=== PATIENT | female | born 1965 | race African-American/Black ===

== ENCOUNTER 2022-05-03 07:59 | Day surgery (SDC) | payer OTHER, SELFPAY ==
[2022-04-26 09:42] VITALS: BMI 46.6
--- NOTE | 2022-05-02 09:46 | HO.ANESPROP2 ---
Documented by User: Brigitte Quintana NP 05/02/22 09:48 HPI - Anesthesia Eval Consult details Narrative: 56yo F for Left AV Fistula Creation Late stage CKD, no HD yet [facility] Past Medical History Medical History Anemia Chronic kidney disease Difficulty swallowing Elevated cholesterol HTN (hypertension) Lupus (systemic lupus erythematosus) Pneumonia Sleep apnea Type 2 diabetes mellitus Surgical History Surgical History H/O colonoscopy Hx of cholecystectomy Hx of knee surgery Social History Social History Are you a primary critical care physician assistant to a significant other at home: No Do you presently have visiting nurse or other home services: No Patient Tobacco Use Status: Former Tobacco user Quit Date: 2006 Tobacco use type: Cigarette Use of substances other than those prescribed or required for medical reasons: No Have you been hit, kicked, punched, or otherwise hurt by someone within the past year? If so, by whom?: No Are you DNR?: No Advance Directives: No ([facility] has to redo her HCP form) Advance Directives Information Provided: Yes (declined brochure-[facility] has new form to complete at home) Advance Directives on File: No Recently lost weight without trying: No Eating poorly because of decreased appetite: No Nutrition Risks: No Nutritional Risk Patient : No Poor oral hygiene: No Meds Allergies Allergy/AdvReac Type Severity Reaction Status Date / Time JULIANA Inhibitors AdvReac Intermediate Cough Verified 05/03/22 08:18 Home Medications Medication Instructions Recorded Confirmed Last Taken Type albuterol sulfate 90 mcg/actuation 2 puff inhalation Q4-6H PRN 04/25/22 04/25/22 Unknown History aerosol inhaler (Ventolin HFA) Wheezing aspirin 81 mg tablet,delayed 81 mg PO DAILY 04/25/22 04/25/22 05/02/22 History release calcitriol 0.5 mcg capsule 0.5 mcg PO DAILY 04/25/22 04/25/22 Unknown History cetirizine 10 mg tablet 10 mg PO DAILY 04/25/22 04/25/22 Unknown History cholecalciferol (vitamin D3) 125 125 mcg PO DAILY 04/25/22 04/25/22 Unknown History mcg (5,000 unit) tablet (Vitamin D3) cyclobenzaprine 10 mg tablet 10 mg PO TID PRN Muscle Spasm 04/25/22 04/25/22 Unknown History fluticasone propionate 50 2 spray intranasal DAILY 04/25/22 04/25/22 Unknown History mcg/actuation nasal spray,suspension furosemide 40 mg tablet 40 mg PO Q2D 04/25/22 04/25/22 Unknown History insulin lispro 200 unit/mL (3 mL) 60 unit subcut TID 04/25/22 04/26/22 Unknown History subcutaneous pen metoprolol succinate 50 mg 100 mg PO DAILY 04/25/22 04/25/22 05/03/22 07:00 History tablet,extended release 24 hr multivitamin with iron 1 tab PO DAILY 04/25/22 04/25/22 Unknown History nifedipine 90 mg tablet,extended 90 mg PO DAILY 04/25/22 04/25/22 05/03/22 07:00 History release 24 hr olmesartan 40 mg tablet 40 mg PO DAILY 04/25/22 04/25/22 Unknown History rosuvastatin 20 mg tablet 20 mg PO DAILY 04/25/22 04/25/22 Unknown History spironolactone 25 mg tablet 25 mg PO DAILY 04/25/22 04/25/22 Unknown History epoetin anderson-epbx 40,000 unit/mL 1 ml subcut Q2W 04/26/22 04/26/22 Unknown History injection solution (Retacrit) exenatide microspheres 2 mg/0.85 2 mg subcut QWEEK 04/26/22 04/26/22 Unknown History mL subcutaneous auto-injector (Bydureon BCise) insulin glargine 100 unit/mL (3 50 unit subcut BID 04/26/22 04/26/22 05/03/22 07:00 History mL) subcutaneous pen (Semglee Pen U-100 Insulin) brimonidine 0.15 % eye drops drp 05/03/22 05/03/22 05/03/22 07:00 History (Alphagan P) Exam Exam Date and Time: May 02, 2022 0946 Height,Weight and Vital Signs: Height 5 ft 7 in Weight 135.171 kg Assessment and Plan Assessment Anesthesia Assessment: Chart Reviewed Documented by User: Elmo Benites MD 05/03/22 23:49 [facility] Past Medical History Medical History Anemia Chronic kidney disease Difficulty swallowing Elevated cholesterol HTN (hypertension) Lupus (systemic lupus erythematosus) Pneumonia Sleep apnea Type 2 diabetes mellitus Family History Family history of problems with anesthesia: No Surgical History Surgical History H/O colonoscopy Hx of cholecystectomy Hx of knee surgery History of Problems with Anesthesia: Yes (h/o Panic attack at emergence ) Social History Social History Are you a primary critical care physician assistant to a significant other at home: No Do you presently have visiting nurse or other home services: No Patient Tobacco Use Status: Former Tobacco user Quit Date: 2006 Tobacco use type: Cigarette Use of substances other than those prescribed or required for medical reasons: No Have you been hit, kicked, punched, or otherwise hurt by someone within the past year? If so, by whom?: No Are you DNR?: No Advance Directives: No (states has to redo her HCP form) Advance Directives Information Provided: Yes (declined brochure-[facility] has new form to complete at home) Advance Directives on File: No Recently lost weight without trying: No Eating poorly because of decreased appetite: No Nutrition Risks: No Nutritional Risk Patient : No Poor oral hygiene: No Meds Allergies Allergy/AdvReac Type Severity Reaction Status Date / Time JULIANA Inhibitors AdvReac Intermediate Cough Verified 05/03/22 08:18 Home Medications Medication Instructions Recorded Confirmed Last Taken Type albuterol sulfate 90 mcg/actuation 2 puff inhalation Q4-6H PRN 04/25/22 04/25/22 Unknown History aerosol inhaler (Ventolin HFA) Wheezing aspirin 81 mg tablet,delayed 81 mg PO DAILY 04/25/22 04/25/22 05/02/22 History release calcitriol 0.5 mcg capsule 0.5 mcg PO DAILY 04/25/22 04/25/22 Unknown History cetirizine 10 mg tablet 10 mg PO DAILY 04/25/22 04/25/22 Unknown History cholecalciferol (vitamin D3) 125 125 mcg PO DAILY 04/25/22 04/25/22 Unknown History mcg (5,000 unit) tablet (Vitamin D3) cyclobenzaprine 10 mg tablet 10 mg PO TID PRN Muscle Spasm 04/25/22 04/25/22 Unknown History fluticasone propionate 50 2 spray intranasal DAILY 04/25/22 04/25/22 Unknown History mcg/actuation nasal spray,suspension furosemide 40 mg tablet 40 mg PO Q2D 04/25/22 04/25/22 Unknown History insulin lispro 200 unit/mL (3 mL) 60 unit subcut TID 04/25/22 04/26/22 Unknown History subcutaneous pen metoprolol succinate 50 mg 100 mg PO DAILY 04/25/22 04/25/22 05/03/22 07:00 History tablet,extended release 24 hr multivitamin with iron 1 tab PO DAILY 04/25/22 04/25/22 Unknown History nifedipine 90 mg tablet,extended 90 mg PO DAILY 04/25/22 04/25/22 05/03/22 07:00 History release 24 hr olmesartan 40 mg tablet 40 mg PO DAILY 04/25/22 04/25/22 Unknown History rosuvastatin 20 mg tablet 20 mg PO DAILY 04/25/22 04/25/22 Unknown History spironolactone 25 mg tablet 25 mg PO DAILY 04/25/22 04/25/22 Unknown History epoetin anderson-epbx 40,000 unit/mL 1 ml subcut Q2W 04/26/22 04/26/22 Unknown History injection solution (Retacrit) exenatide microspheres 2 mg/0.85 2 mg subcut QWEEK 04/26/22 04/26/22 Unknown History mL subcutaneous auto-injector (Bydureon BCise) insulin glargine 100 unit/mL (3 50 unit subcut BID 04/26/22 04/26/22 05/03/22 07:00 History mL) subcutaneous pen (Semglee Pen U-100 Insulin) brimonidine 0.15 % eye drops drp 05/03/22 05/03/22 05/03/22 07:00 History (Alphagan P) Exam Airway Mallampati Class: IV TM Dist: >3cm Neck ROM: Full Loose/Missing/Broken Teeth: Yes (globally poor dentition ) Heart: S1,S2 Lungs: distant breath sounds Assessment and Plan Assessment Anesthesia Assessment: Anesthesia Plan Discussed Final Anesthetic Review Family History of Problems with Anesthesia: No History of Problems with Anesthesia: Yes (h/o Panic attack at emergence ) NPO: Yes ASA Class: IV Final Preanesthetic Review: Meds/Allgs Chart Reviewed, Consent Obtained/Reviewed and Anes Risks/Benef Reviewed Patient Risk: High Procedure Risk: Intermediate Anesthetic Plan Anesthetic Plan: MAC: and Regional Block Disposition: Standard PACU
[2022-05-03 08:25] LABS: Hematocrit 28.1 % (37.0-47.0); Hemoglobin 8.7 g/dl (12.0-16.0); Mean Corpuscular Hemoglobin 26.2 pg (27.0-33.0); Mean Corpuscular Volume 84.6 fL (80.0-98.0); Platelet Count 298 X10*3/uL (160-400); Red Blood Count 3.32 X10*6/uL (4.20-5.50); Red Cell Distribution Width 15.1 % (11.0-16.0); White Blood Count 9.4 X10*3/uL (4.8-10.8)
[2022-05-03 08:31] VITALS: BP 167/91; PULSE 84; RESP 18; TEMP 36.6; O2SAT 98
[2022-05-03 08:34] LABS: Glucose, Whole Blood 148 mg/dL (60-115)
[2022-05-03] MEDS: 0.9 % Sodium Chloride 1,000 ML 100 ML IVCONT (08:50)
[2022-05-03 08:56] LABS: Anion Gap 16 (12-20); Blood Urea Nitrogen 46 mg/dL (9-16); Calcium 10.6 mg/dL (8.4-10.2); Carbon Dioxide 20 mmol/L (22-29); Chloride 110 mmol/L (96-108); Glucose Fasting 178 mg/dL (60-99); Potassium 4.6 mmol/L (3.3-5.1); Sodium 141 mmol/L (135-145)
[2022-05-03 08:58] LABS: Creatinine Clr Calc Pharmacy 20.2; Estimated Glomerular Filt Rate 10
[2022-05-03 12:16] VITALS: BP 153/77; PULSE 91; RESP 22; TEMP 36.3; O2SAT 100
[2022-05-03 12:21] VITALS: BP 164/78; PULSE 87; RESP 20; O2SAT 95
[2022-05-03 12:26] VITALS: BP 164/78; PULSE 86; RESP 20; O2SAT 96
[2022-05-03 12:31] VITALS: BP 166/82; PULSE 84; RESP 22; TEMP 36.1; O2SAT 95
--- NOTE | 2022-05-03 12:32 | P.OP_ITS ---
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 Lower extremity compression devices were placed. The anesthesiologist administered the pre- operative antibiotic. An US of the veins was performed on the left arm. After successful induction of MAC anesthesia, the left arm was prepped and draped in a sterile fashion. A surgical timeout took place. Local anesthetic was used. An incision was made below the crease of the elbow on the forearm. The Bovie electrocautery was used to dissect through the subcutaneous tissue. The antecubital vein, cephalic vein and basilic vein were isolated and skeletonized. Small branches were ligated and divided with 4-0 silk ties. The cephalic vein and the basilic vein were distended using hep-saline and dilators. The brachial artery was identified, dissected and skeletonized. There was no intimal calcification. Small branches were ligated and divided using 4-0 silk ties. Proximal and distal control was achieved. An arteriotomy was made and the ante cubital vein was directly sewn to the brachial artery using a 6-0 Prolene in a running fashion. The clamps were released and a thrill was noted. Hemostasis was maintained. The incision was closed in layers. Surgical glue was applied. The hand was well perfused. The patient tolerated the procedure well. All instrument, sponge and needle counts were correct at the end of the case.
[2022-05-03 12:46] VITALS: BP 153/77; PULSE 86; RESP 16; TEMP 36.3; O2SAT 99
== END 2022-05-03 13:58 | disposition home or self-care (01) ==
PROVIDERS: Nurse Practitioner; PCP Internal Medicine; Visit Provider Transplant Surgery
PROC: (CPT 36821; principal; 2022-05-03 09:40)
DX: E11.22 Type 2 diabetes mellitus with diabetic chronic kidney disease (principal); I12.0 Hypertensive chronic kidney disease with stage 5 chronic kidney disease or end stage renal disease; N18.5 Chronic kidney disease, stage 5; D63.1 Anemia in chronic kidney disease; Z79.4 Long term (current) use of insulin; M32.9 Systemic lupus erythematosus, unspecified; I25.10 Atherosclerotic heart disease of native coronary artery without angina pectoris; E78.00 Pure hypercholesterolemia, unspecified; G47.33 Obstructive sleep apnea (adult) (pediatric); R80.9 Proteinuria, unspecified; Z79.51 Long term (current) use of inhaled steroids; Z79.82 Long term (current) use of aspirin; Z79.899 Other long term (current) drug therapy; Z99.89 Dependence on other enabling machines and devices; Z88.8 Allergy status to other drugs, medicaments and biological substances; Z87.891 Personal history of nicotine dependence; Z90.49 Acquired absence of other specified parts of digestive tract; Z87.01 Personal history of pneumonia (recurrent)
CPT/HCPCS: 36821; 36415; 80048; 82947; 85027; J0690; J2250; J2795; J3010